=== PATIENT | female | born 1960 | race African-American/Black ===

== ENCOUNTER 2025-07-17 08:09 | Inpatient (IN) | payer OTHER ==
[~2025-07-17] VITALS: Ht 160 cm; Wt 85.1 kg
[~2025-07-17 08:09] MED LIST: HCTZ PO; LISI-713 PO; METO-462 PO; NIACPOW24 PO; WARF10TA PO; WARF5TAB PO
--- NOTE | 2025-07-17 08:18 | ED.PDOC ---
History of Present Illness HPI Comments 28-year-old female RICHARD with prior medical history of hypertension, high lipids, CAD, depression, AFib, mi, anxiety: Surgical history of a hysterectomy and the chief complaint of chest pain. EMS report that the patient originally woke up this morning with swelling on her fingers, and as the patient was w ashing her hands the patient had severe onset of center chest pressure pain [id number]. Patient took 324 mg of baby aspirin at home and called EMS. Patient has started become diaphoretic and have shortness a breath. When EMS arrived on scene the patient was complaining of chest pain on the pain scale of 3/10. Denies any other symptoms at this time. Denies chills, fever, N/V/D, SOB. No other associated symptoms, modifiers, recent injuries or sick contacts present at this time. Chief Complaint: Chest Pain Time Seen by MD: 08:00 Primary Care Provider: Omi Mo Notes: Nurses Notes, [employer] Person Notes, Medications, Allergies Allergies: Coded Allergies: Iodine (Verified Allergy, Unknown, 11/16/18) Uncoded Allergies: FLORINAL (Allergy, Unknown, 11/16/18) Home Meds Reported Medications [Niacin] (Niacin) No Conflict Check, PO DAILY 11/26/12 [Hctz] No Conflict Check, 50 MG PO DAILY 11/26/12 Metoprolol Tartrate (Lopressor) 100 Mg Tab, 200 MG PO BID 11/26/12 Lisinopril (Zestril) 40 Mg Tab, PO BID 11/26/12 Warfarin Sodium (Coumadin) 5 Mg Tab, PO EOD 11/26/12 Warfarin Sodium (Coumadin) 10 Mg Tab, PO EOD 11/26/12 Information Source: Patient, Emergency Med Personnel Mode of Arrival: EMS Severity: Moderate Timing: Minutes Duration: Since onset, Minutes Prehospital treatment: None Past Medical History PAST MEDICAL HISTORY: AFIB, Anxiety, CAD, Depression, High Lipids, HTN, PR Surgical History: Hysterectomy RECEIVER History: No Pertinent RECEIVER History Family History Family History: Reviewed,noncontributory to illness, Unknown Social History Smoker: Quit Less Than 1 Year, Cigarettes Alcohol: Rarely Drugs: Marijuana Lives In: Home Constitutional: reports: others (Diaphoretic); denies: chills, diaphoresis, fatigue, fever, malaise, sweats, weakness EENTM: denies: blurred vision, double vision, ear bleeding, ear discharge, ear drainage, ear pain, ear ringing, eye pain, eye redness, hearing loss, mouth pain, mouth swelling, nasal discharge, nose bleeding, nose congestion, nose pain, photophobia, tearing, throat pain, throat swelling, voice changes, others Respiratory: reports: shortness of breath; denies: cough, hemoptysis, orthopnea, SOB at rest, SOB with excertion, stridor, wheezing, others Cardiovascular: reports: chest pain; denies: dizzy spells, diaphoresis, Dyspnea on exertion, edema, irregular heart beat, left arm pain, lightheadedness, palpitations, PND, syncope, others Gastrointestinal: denies: abdomen distended, abdominal pain, blood streaked bowels, constipated, diarrhea, dysphagia, difficulty swallowing, hematemesis, melena, nausea, poor appetite, poor fluid intake, rectal bleeding, rectal pain, vomiting, others Genitourinary: denies: abnormal vagina bleeding, burning, dyspareunia, dysuria, flank pain, frequency, hematuria, incontinence, pain, , vagina discharge, urgency, others Neurological: denies: dizziness, fainting, headache, left sided numbness, left sided weakness, numbness, paresthesia, pre-existing deficit, right sided numbness, right sided weakness, seizure, speech problems, tingling, tremors, weakness, others Musculoskeletal: denies: back pain, gout, joint pain, joint swelling, muscle pain, muscle stiffness, neck pain, others Integumetry: denies: bruises, change in color, change in hair/nails, dryness, laceration, lesions, lumps, rash, wounds, others Allergic/Immunocompromised: denies: Difficulty Healing, Frequent Infections, Hives, Itching, others Hematologic/Lymphatic: denies: anemia, blood clots, easy bleeding, easy bruising, swollen glands, others Endocrine: denies: excessive hunger, excessive sweating, excessive thirst, excessive urination, flushing, intolerance to cold, intolerance to heat, unexplained weight gain, unexplained weight loss, others Psychiatric: denies: anxiety, bipolar disorder, depression, hopeless, panic disorder, schizophrenia, sleepless, suicidal, others All Other Systems: Reviewed and Negative Physical Exam General Appearance: Moderate Distress, Normal HEENT: Normal ENT Inspection, Pharynx Normal, TMs Normal Neck: Full Range of Motion, Non-Tender, Normal, Normal Inspection Respiratory: Chest Non-Tender, Lungs Clear, No Accessory Muscle Use, No Respir atory Distress, Normal Breath Sounds Cardiovascular: No Edema, No JVD, No Murmur, No Gallop, Normal Peripheral Pulses, Regular Rate/Rhythm Breast Exam: Deferred Gastrointestinal: No Organomegaly, Non Tender, No Pulsatile Mass, Normal Bowel Sounds, Soft Genitalia: Deferred Pelvic: Deferred Rectal: Deferred Extremities: No calf tenderness, Normal capillary refill, Normal inspection, Normal range of motion, Non-tender, No pedal edema Musculoskeletal : Apperance: Normal Neurologic: Alert, matrix supervisor II-XII nml as Tested, No Motor Deficits, Normal Affect, Normal Mood, No Sensory Deficits Cerebellar Function: NOT DONE Reflexes: NOT DONE Skin: Dry, Normal Color, Warm Peripheral Pulses: 3+ Radial (R), 3+ Radial (L) Lymphatic: No Adenopathy Was a procedure done? Was a procedure done?: No EKG EKG : [place]: Normal Block: RBBB Hypertrophy: None ST: Normal Differential Dx Considerations may include: Anemia Electrolyte imbalance X-Ray, Labs, Meds, VS Vital Signs Date Time Temp Pulse Resp B/P (MAP) Pulse Ox O2 Delivery O2 Flow Rate FiO2 07/17/25 09:05 75 13 123/70 (87) 97 07/17/25 08:39 77 07/17/25 08:11 75 07/17/25 08:11 97.6 76 18 118/77 98 97.6 Lab Test 07/17/25 09:58 07/17/25 08:32 Range/Units Troponin I High Sensitivity 5 5 </=34 ng/L White Blood Count 10.5 4.4-10.8 10^3/uL Red Blood Count 4.22 4.0-5.20 10^6/uL Hemoglobin 13.2 12.2-16.2 g/dL Hematocrit 37.8 36.0-46.0 % Mean Corpuscular Volume 89.5 80.0-100.0 fL Mean Corpuscular Hemoglobin 31.2 28.0-32.0 pg Mean Corpuscular Hemoglobin Concent 34.9 32.0-36.0 g/dL Red Cell Distribution Width 13.8 11.8-14.3 % Platelet Count 244 140-450 10^3/uL Mean Platelet Volume 8.8 6.9-10.8 fL Neutrophils (%) (Auto) 70.7 37.0-80.0 % Lymphocytes (%) (Auto) 15.6 10.0-50.0 % Monocytes (%) (Auto) 11.2 0.0-12.0 % Eosinophils (%) (Auto) 1.4 0.0-7.0 % Basophils (%) (Auto) 1.1 0.0-2.0 % Neutrophils # (Auto) 7.4 1.6-8.6 10 ^3/uL Lymphocytes # (Auto) 1.6 0.4-5.4 10 ^3/uL Monocytes # (Auto) 1.2 0-1.3 10 ^3/uL Eosinophils # (Auto) 0.1 0-0.8 10 ^3/uL Basophils # (Auto) 0.1 0-0.2 10 ^3/uL Nucleated Red Blood Cells 0.0 % Sodium Level 144 136-145 mmol/L Potassium Level 2.5 *L 3.5-5.1 mmol/L Chloride Level 107 98-107 mmol/L Carbon Dioxide Level 27 20-31 mmol/L Anion Gap 10 5-15 Blood Urea Nitrogen 19 9-23 mg/dL Creatinine 1.40 H 0.550-1.02 mg/dL Glomerular Filtration Rate Calc 43 >90 mL/min BUN/Creatinine Ratio 13.6 10.0-20.0 Serum Glucose 116 H 74-106 mg/dL Calcium Level 9.0 8.7-10.4 mg/dL Current Medications Medications (Trade) Dose Ordered Sig/Jyotsna Route Start Time Stop Time Status Last Admin Aspirin 325 mg ONCE ONCE PO 07/17/25 08:30 07/17/25 08:31 DC 07/17/25 08:45 Potassium Bicarbonate (Klor-Con/Ef) 50 meq ONCE ONCE PO 07/17/25 10:00 07/17/25 10:01 DC 07/17/25 10:31 Patient alert. Complaining of chest discomfort. Vitals stable. Answering questions. Has a history of atrial fibrillation hypertension. EKG reviewed does show chronic changes. Potassium is low. Was given potassium. Explained to the patient. Continue monitoring. Time of 1ST Reevaluation: 08:30 Reevaluation 1ST: Unchanged Patient Education/Counseling: Diagnosis, Treatment, Prognosis Family Education/Counseling: No Family Present SEPSIS Sepsis Screen Physician Orders Chest Portable (07/17/25 08:16) Urinalysis (07/17/25 08:16) Troponin-I Hs (07/17/25 11:16) Electrocardigram (07/17/25 09:17) Electrocardigram (07/17/25 11:17) Vital Signs Date Time Temp Pulse Resp B/P (MAP) Pulse Ox O2 Delivery O2 Flow Rate FiO2 07/17/25 09:05 75 13 123/70 (87) 97 07/17/25 08:39 77 07/17/25 08:11 75 07/17/25 08:11 97.6 76 18 118/77 98 97.6 Laboratory Tests Test 07/17/25 08:32 White Blood Count 10.5 10^3/uL (4.4-10.8) Medications Medications Dose Ordered Sig/Jyotsna Route Start Time Stop Time Status Last Admin Dose Admin Aspirin 325 mg ONCE ONCE PO 07/17/25 08:30 07/17/25 08:31 DC 07/17/25 08:45 Potassium Bicarbonate 50 meq ONCE ONCE PO 07/17/25 10:00 07/17/25 10:01 DC 07/17/25 10:31 Departure 1 Departure Time of Disposition: 08:24 Impression: Primary Impression: Hypokalemia Additional Impression: Chest pain of unknown etiology Disposition: ADMITTED INPATIENT Admit to: Med Surg Condition: Guarded Critical Care Note Critical Care Time?: Yes (90 min-critical care time only) Stability Stability form required: No Heart Score Heart Score: Heart Score Response (Comments) Value History Slightly Suspicious 0 EKG Normal 0 Age 45-64 1 Risk Factors >3 or Hx ASHD 2 Troponin N/A 0 Total 3 I personally scribed for ESPERANZA JANE MD ([email or web address]) on 07/17/25 at 08:18. Electronically submitted by David Almanzar ([email or web address]). ESPERANZA JANE MD Jul 17, 2025 08:18
[2025-07-17 08:44] LABS: Hematocrit 37.8 % (36.0-46.0); Hemoglobin 13.2 g/dL (12.2-16.2); Mean Corpuscular Hemoglobin 31.2 pg (28.0-32.0); Mean Corpuscular Volume 89.5 fL (80.0-100.0); Nucleated Red Blood Cells % 0.0 %
--- NOTE | 2025-07-17 08:54 | DVH ---
Procedure: XY CHEST PORTABLE History: sob Comparison: CXR1 on DOS: 01/21/22 Technique: Single view of the chest. Findings: The lung parenchyma is clear. No pleural effusion. Cardiac silhouette is enlarged. Impression: 1. No acute cardiopulmonary disease.
[2025-07-17 08:56] LABS: Sodium 144 mmol/L (136-145)
[2025-07-17 08:57] LABS: Anion Gap 10 (5-15); Calcium 9.0 mg/dL (8.7-10.4); Carbon Dioxide 27 mmol/L (20-31)
[2025-07-17 09:02] LABS: BUN/Creatinine Ratio 13.6 (10.0-20.0); Blood Urea Nitrogen 19 mg/dL (9-23); Chloride 107 mmol/L (98-107); Glucose 116 mg/dL (74-106)
[2025-07-17 09:05] VITALS: PULSE 75; RESP 13; O2SAT 97
[2025-07-17 09:05] LABS: Potassium 2.5 mmol/L (3.5-5.1)
[2025-07-17] MEDS: POTASSIUM EFFERVESENT TAB 25 MEQ PO ONE (10:31)
--- NOTE | 2025-07-17 10:44 | ECG ---
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
[2025-07-17] MEDS ORDERED: MORPHINE SULFATE 4 MG/ML SYR/VIAL IV PRN (12:00)
[2025-07-17] MEDS ORDERED: MORPHINE SULFATE INJ 2 MG/ml SYRG IV PRN (12:00)
[2025-07-17] MEDS ORDERED: NITROGLYCERIN 0.4 MG SL TAB SL PRN ×2 (12:00)
[2025-07-17] MEDS ORDERED: ACETAMINOPHEN 325 MG TAB PO PRN (12:00)
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
--- NOTE | 2025-07-17 12:15 | ECG ---
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
--- NOTE | 2025-07-17 12:15 | ECG ---
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
[2025-07-17] MEDS: ONDANSETRON HCL 4 MG/2 ML VIAL IV PRN (12:35)
[2025-07-17] MEDS: ENOXAPARIN SOD 40 MG/0.4 ML SYRINGE SC SCH (14:53)
[2025-07-17] MEDS ORDERED: FLEC100T PO (18:52)
[2025-07-17] MEDS ORDERED: PANT40TA2 PO (18:52)
[2025-07-17] MEDS ORDERED: METO-159 PO (18:52)
[2025-07-17 20:35] VITALS: BP 126/80; PULSE 80; RESP 17; TEMP 98.7; O2SAT 98
[2025-07-17 21:00] VITALS: BP 126/80; PULSE 80; RESP 17; TEMP 98.7; O2SAT 98
[2025-07-17] MEDS: ATORVASTATIN 20 MG TAB PO SCH (22:43)
[2025-07-17] MEDS: METOPROLOL TARTRATE 50 MG TAB PO SCH (22:44)
[2025-07-17] MEDS: HYDROcodone-ACET 7.5/325MG TAB PO ONE (22:45)
[2025-07-17] MEDS ORDERED: INFLUENZA TRIVALENT 2024-2025 0.5 ML INJ IM ONE (23:15)
[2025-07-18] VITALS (9 sets, daily range): BP systolic 89–146; BP diastolic 50–90; PULSE 66–85; RESP 16–19; TEMP 97.8–99; O2SAT 97–99
[2025-07-18 06:46] LABS: Hematocrit 35.0 % (36.0-46.0); Hemoglobin 12.5 g/dL (12.2-16.2); Mean Corpuscular Hemoglobin 31.9 pg (28.0-32.0); Mean Corpuscular Volume 89.7 fL (80.0-100.0); Nucleated Red Blood Cells % 0.0 %
[2025-07-18 06:59] LABS: Anion Gap 12 (5-15); Carbon Dioxide 27 mmol/L (20-31); Chloride 104 mmol/L (98-107); Sodium 143 mmol/L (136-145)
[2025-07-18 07:04] LABS: Calcium 8.7 mg/dL (8.7-10.4); Potassium 2.6 mmol/L (3.5-5.1)
[2025-07-18 07:05] LABS: BUN/Creatinine Ratio 16.1 (10.0-20.0); Blood Urea Nitrogen 20 mg/dL (9-23); Magnesium 1.8 mg/dL (1.6-2.6); Triglycerides 143 mg/dL (< 150)
[2025-07-18 07:07] LABS: Cholesterol 180 mg/dL (< 200)
[2025-07-18 07:10] LABS: Glucose 147 mg/dL (74-106); HDL Cholesterol 34 mg/dL (40-59)
[2025-07-18] MEDS ORDERED: HCTZ PO SCH (10:00)
[2025-07-18] MEDS ORDERED: LISINOPRIL 20 MG TAB PO SCH (10:00)
--- NOTE | 2025-07-18 11:19 | DVHSR ---
APPROVED REPORT EXAM: Two-dimensional and M-mode echocardiogram with Doppler and color Doppler. Blood Pressure: 123/70 mmHg INDICATION Chest Pain RISK FACTORS Height: 63, Weight: 175 DIMENSIONS LVDd4.4 (3.8-5.7cm)LA (2D) (1.9-4.0cm)Aortic Root3.4 (2.0-3.7cm) LVDs2.8 (2.5-4.0cm)LA (MM) (1.9-4.0cm)Aortic Cusp Exc2.1 (1.5-2.0cm) EF (%) 67.0 (55-70%)Rt. Atrium4.6 (1.9-4.0cm)Asc. Aorta cm Mitral Valve MitralMitral Stenosis E wave0.93m/sMV Mean GR.mmHg A wave1.36m/sMV Peak GR.92mmHg E/A ratio0.72D MVAcm2 DECEL [id number] 1/2 [id number] IVRTmsDop MVA3.42cm2 Aortic Valve Aortic ValveAortic Stenosis V11.35m/Christiane Mean GR.5mmHg V21.61m/Christiane Peak GR.10mmHg LVOT Diameter2.2 (1.8-2.4cm)Doppler AVA3.19cm2 AI P 1/2 Mjgs620.23ms Pulmonic Valve V20.95m/s Tricuspid Valve TR Velocity2.69m/s [id number] Conclusion Technically good study. Sinus rhythm. Mild aortic root enlargement. Mild thickening of the anterior and posterior mitral leaflets. Good excursion. The aortic tricuspid and pulmonic or structurally normal. Left ventricular function is preserved at 60% with normal RV function. Dopplers unremarkable. Mild MR. Moderate tricuspid regurgitation. Trace aortic insufficiency. No pericardial effusion masses or vegetations.
--- NOTE | 2025-07-18 14:34 | DVHPN2 ---
Reviewed: Care Plan, H&P, Labs, Medications, Previous Orders, Radiology Changes from previous H/P or p: No Changes Cardiovascular: Chest Pain Respiratory: Shortness of breath Objective Vitals Vital Signs Date Time Temp Pulse Resp B/P (MAP) Pulse Ox O2 Delivery O2 Flow Rate FiO2 07/18/25 13:00 98.5 66 18 89/50 (63) 98 98.5 07/17/25 20:35 Room Air* 0 21 Intake/Output Intake and Output 07/18/25 07:00 Intake Total 300 ml Balance 300 ml Intake Oral 300 ml # Voids 1 Medications Current Medications Medications Dose Ordered Sig/Jyotsna Route Start Time Stop Time Status Last Admin Dose Admin Enoxaparin Sodium 40 mg DAILY SC 07/17/25 12:00 07/18/25 09:53 40 MG Aspirin 81 mg DAILY PO 07/18/25 10:00 07/18/25 09:53 81 MG Atorvastatin Calcium 40 mg HS PO 07/17/25 22:00 07/17/25 22:43 40 MG Acetaminophen 650 mg Q6HP PRN PO 07/17/25 12:00 Nitroglycerin 0.4 mg Q5MINP PRN SL 07/17/25 12:00 Ondansetron HCl 4 mg Q4HP PRN IV 07/17/25 12:00 07/18/25 08:29 4 MG Morphine Sulfate 2 mg Q30M PRN IV 07/17/25 12:00 Metoprolol Tartrate 100 mg BID PO 07/17/25 22:00 07/17/25 22:44 100 MG Patient Own Medication 50 mg DAILY PO 07/18/25 10:00 Hold Lisinopril 40 mg DAILY PO 07/18/25 10:00 Hold Laboratory Results Laboratory Tests 07/18/25 05:37 Chemistry Test 07/18/25 05:37 Calcium Level 8.7 mg/dL (8.7-10.4) Magnesium Level 1.8 mg/dL (1.6-2.6) Lipid panel Test 07/18/25 05:37 Cholesterol Level 180 mg/dL (< 200) HDL Cholesterol 34 mg/dL (40-59) L Triglycerides Level 143 mg/dL (< 150) Labs and/or images reviewed: Labs reviewed by me, Image(s) reviewed by me Assessment/Plan Assessment/Plan Chest pain rule out ACS: Troponin negative x3: Echo 60 % ejection fraction, consult by Dr. Olson Hypokalemia AMELIA likely prerenal Tobacco use AFib Anxiety Coronary artery disease Depression Hypercholesterolemia Hypertension History of MT History of cardiac ablation 2018 at [place] Medication noncompliance Time spent 50 minutes losartan Advanced care planning time 20 minutes Patient is full code Plan discussed with: Patient Date of Service: Jul 18, 2025 Billing Provider: YVES PULIDO MD Common Visit Codes: [id number] INP/OBS CARE(HIGH) Secondary Visit Codes: [id number] CARE PLAN 30 MINUTES YVES PULIDO MD Jul 18, 2025 14:34
[2025-07-18] MEDS ORDERED: POTASSIUM CHLORIDE 60 MEQ, LIDOCAINE 1% (LOCAL ANESTH.) 6 ML in SODIUM CHL 0.9% 500 ML IV ONE (14:45)
[2025-07-18] MEDS ORDERED: POTASSIUM CHL 20 Meq TABLET PO ONE (14:45)
--- NOTE | 2025-07-18 15:08 | DVHINCON2 ---
Date Seen: Jul 18, 2025 Referring Physician MD Chuckie Reason for Consultation Chest pain History of Present Illness This is a pleasant 64-year-old female who presented to the emergency room via EMS with a chief complaint of chest pain since . The patient reports developing myalgia, aching of the hips, and right hand swelling on Tuesday. She reports on Tuesday morning she felt a sudden onset of substernal chest pain described as pressure-like, nonradiating, non provoked, and associated with tremors and hyperventilation prompting her spouse to call 911. EN route to the hospital she was administered ASA 324 mg p.o. x1. Upon arrival, she underwent a 12 lead electrocardiogram revealing a sinus rhythm with a associated right bundle branch block and LABF. There were no obvious signs of ST-T segment changes. Serial troponin levels are negative. Significant medical history includes history of atrial fibrillation previously on Pradaxa therapy status post cardiac ablation on 2017 at [facility] and with current ASA/flecainide/metoprolol therapy, history of myocardial infarction undergoing a coronary angiogram without catheter based intervention given normal coronaries in 2003, mitral valve regurgitation, chronic hypokalemia (stopped KCL three years ago), hypertension, asthma, and anxiety. Past Medical History Past medical history reviewed. No other significant than mentioned above. Past Surgical History Cardiac ablation, 2018 Hysterectomy Family History: Patient reports no known family medical history. Family History Family history reviewed. Both parents with CHF. Social History Admits to cigarette smoking, one pack per day. Admits to edibles (cannabinoids) on occasional basis. Denies the use of alcohol. Allergies: Coded Allergies: Iodine (Verified Allergy, Unknown, 11/16/18) Uncoded Allergies: FLORINAL (Allergy, Unknown, 11/16/18) Home Meds Reported Medications Flecainide Acetate (Flecainide Acetate) 100 Mg Tab, 100 MG PO Q12HR, MG 07/17/25 Pantoprazole Sodium Sesquihydr (Protonix) 40 Mg Tab, 40 MG PO DAILY, #30 TAB 07/17/25 Metoprolol Tartrate (Metoprolol Tartrate) 100 Mg Tab, 100 MG PO BID for 30 Days, MG 07/17/25 [Niacin] (Niacin) No Conflict Check, PO DAILY 11/26/12 [Hctz] No Conflict Check, 50 MG PO DAILY 11/26/12 Metoprolol Tartrate (Lopressor) 100 Mg Tab, 200 MG PO BID 11/26/12 Lisinopril (Zestril) 40 Mg Tab, PO BID 11/26/12 Warfarin Sodium (Coumadin) 5 Mg Tab, PO EOD 11/26/12 Warfarin Sodium (Coumadin) 10 Mg Tab, PO EOD 11/26/12 Home Meds Home medications reviewed. Current Medications Current Medications Medications (Trade) Dose Ordered Sig/Jyotsna Route PRN Reason Start Time Stop Time Status Last Admin Aspirin 81 mg DAILY PO 07/18/25 10:00 07/18/25 09:53 Atorvastatin Calcium (Lipitor) 40 mg HS PO 07/17/25 22:00 07/17/25 22:43 Metoprolol Tartrate (Lopressor Tablet) 100 mg BID PO 07/17/25 22:00 07/17/25 22:44 Patient Own Medication 50 mg DAILY PO 07/18/25 10:00 Hold Lisinopril (Zestril Tablet) 40 mg DAILY PO 07/18/25 10:00 Hold Hydromorphone HCl (Dilaudid Injection) 2 mg Q6HPRN PRN IV SEVERE PAIN (7-10 PAIN SCALE) 07/18/25 14:45 Review of Systems Constitutional: Myalgia Ears, Nose, & Throat: No symptom reported Eyes: No symptom reported Neurological: No symptoms reported Pulmonary/Respiratory: No symptom reported Cardiovascular: Chest pain Gastrointestinal: No symptom reported Genitourinary: No symptom reported Musculoskeletal: No symptom reported Skin: No symptom reported Psychiatric: No symptom reported Endocrine: No symptom reported Hemotologic/Lymphatic: No symptom reported Vital Signs Vital Signs Date Time Temp Pulse Resp B/P (MAP) Pulse Ox O2 Delivery O2 Flow Rate FiO2 07/18/25 13:00 98.5 66 18 89/50 (63) 98 98.5 07/17/25 20:35 Room Air* 0 21 Physical Exam General Appearance: Cooperative. Well developed. Obese. In no acute distress Head Exam: Normal inspection Neck Exam: Normal inspection. Non-tender. Normal alignment Pulmonary/Respiratory: Chest non-tender. Clear bilateral breath sounds Cardiovascular/Chest: Regular rate and rhythm. S1, S2. Sinus rhythm with RBBB and LAFB. No murmurs. No JVD. Peripheral Pulses: 2+ Radial (R). 2+ Radial (L). 2+ Pedal (R). 2+ Pedal (L) Abdominal Exam: Normal bowel sounds. Soft. Ankle Exam: Negative ankle edema Lower extremities: Negative lower extremity edema Neuro/Mental Status: A&O x4. Coherent Thoughts/Psych: Normal thought pattern. Appropriate mood and affect. Good judgement and insight Appearance: In no acute distress Skin Exam: Normal inspection. Normal color. Warm. Dry Labs/Diagnostic Data Labs Test 07/18/25 05:37 07/17/25 08:32 Range/Units White Blood Count 9.1 4.4-10.8 10^3/uL Red Blood Count 3.91 L 4.0-5.20 10^6/uL Hemoglobin 12.5 12.2-16.2 g/dL Hematocrit 35.0 L 36.0-46.0 % Mean Corpuscular Volume 89.7 80.0-100.0 fL Mean Corpuscular Hemoglobin 31.9 28.0-32.0 pg Mean Corpuscular Hemoglobin Concent 35.6 32.0-36.0 g/dL Red Cell Distribution Width 13.8 11.8-14.3 % Platelet Count 229 140-450 10^3/uL Mean Platelet Volume 9.5 6.9-10.8 fL Neutrophils (%) (Auto) 57.3 37.0-80.0 % Lymphocytes (%) (Auto) 25.4 10.0-50.0 % Monocytes (%) (Auto) 14.4 H 0.0-12.0 % Eosinophils (%) (Auto) 1.8 0.0-7.0 % Basophils (%) (Auto) 1.1 0.0-2.0 % Neutrophils # (Auto) 5.2 1.6-8.6 10 ^3/uL Lymphocytes # (Auto) 2.3 0.4-5.4 10 ^3/uL Monocytes # (Auto) 1.3 0-1.3 10 ^3/uL Eosinophils # (Auto) 0.2 0-0.8 10 ^3/uL Basophils # (Auto) 0.1 0-0.2 10 ^3/uL Nucleated Red Blood Cells 0.0 % Sodium Level 143 136-145 mmol/L Potassium Level 2.6 L 3.5-5.1 mmol/L Chloride Level 104 98-107 mmol/L Carbon Dioxide Level 27 20-31 mmol/L Anion Gap 12 5-15 Blood Urea Nitrogen 20 9-23 mg/dL Creatinine 1.24 H 0.550-1.02 mg/dL Glomerular Filtration Rate Calc 49 >90 mL/min BUN/Creatinine Ratio 16.1 10.0-20.0 Serum Glucose 147 H 74-106 mg/dL Calcium Level 8.7 8.7-10.4 mg/dL Magnesium Level 1.8 1.6-2.6 mg/dL Troponin I High Sensitivity 8 </=34 ng/L Triglycerides Level 143 < 150 mg/dL Cholesterol Level 180 < 200 mg/dL LDL Cholesterol 123 H < 100 mg/dL HDL Cholesterol 34 L 40-59 mg/dL Hemoglobin A1c 5.2 <5.7 % A1C Thyroid Stimulating Hormone (TSH) 1.13 0.55-4.78 uIU/mL Free Thyroxine (T4) Calculated 1.36 0.89-1.76 ng/dL Assessment Chest pain in the setting of severe hypokalemia Hx of atrial fibrillation status post cardiac ablation (on ASA/BB/Flecainide) Tricuspid regurgitation, moderate degree Dyslipidemia, newly diagnosed Nicotine dependence Obesity Plan/Recommendation (Dr. Olson) A transthoracic echocardiogram revealed a left ventricular function preserved at 60% with normal RV function and moderate tricuspid regurgitation. Scheduled for a cardiolite stress test at first available. In the meantime, discontinue blood pressure medications given hypotension, continue single antiplatelet therapy, continue lipid lowering agent, and replete K and Mg levels as ordered. ECG changes closely and notify. Further orders per clinical course. Thank you for allowing us to participate in this patient's care. Please call if you have any questions or concerns. This medical document was created using an electronic medical record system with voice recognition software and computerized dictation system. Although this document has been carefully reviewed, there might still be some phonetic and typographical errors. Occasional wrong-word or ``sound-alike substitutions ma y have occurred due to the inherent limitations of voice recognition software. These areas are purely typographical due to imperfections of the software programs and do not reflect any compromise in the patient's medical care. Please read the chart carefully and recognize, using context, where these substitutions have occurred. Plan discussed with: Patient, Spouse, Other NYHA Physical activity limitations: NA Date of Service: Jul 18, 2025 Billing Provider: ASHUTOSH APODACA Cardiology Common Codes: [id number] INP/OBS CARE (High) ASHUTOSH APODACA Jul 18, 2025 15:07
[2025-07-18] MEDS: MAGNESIUM SULFATE 1GM/100ML 100 ML IV ONE (16:09)
[2025-07-18] MEDS: HYDROmorphone HCL 2 MG/ML VL/or syr IV PRN (16:34)
[2025-07-18] MEDS: POTASSIUM EFFERVESENT TAB 25 MEQ GT ONE (16:34)
[2025-07-18] MEDS: POTASSIUM EFFERVESENT TAB 25 MEQ PO SCH (21:35)
[2025-07-19] VITALS (7 sets, daily range): BP systolic 94–149; BP diastolic 57–90; PULSE 79–106; RESP 18–21; TEMP 97.9–99.1; O2SAT 95–97
[2025-07-19 06:37] LABS: Hematocrit 35.0 % (36.0-46.0); Hemoglobin 12.2 g/dL (12.2-16.2); Mean Corpuscular Hemoglobin 31.4 pg (28.0-32.0); Mean Corpuscular Volume 90.4 fL (80.0-100.0); Nucleated Red Blood Cells % 0.0 %
[2025-07-19 07:05] LABS: Albumin 4.0 g/dL (3.2-4.8); Alkaline Phosphatase 84 U/L (46-116); Anion Gap 10 (5-15); BUN/Creatinine Ratio 11.9 (10.0-20.0); Bilirubin, Total 0.5 mg/dL (0.2-1.0); Blood Urea Nitrogen 12 mg/dL (9-23); Calcium 9.2 mg/dL (8.7-10.4); Carbon Dioxide 31 mmol/L (20-31); Chloride 103 mmol/L (98-107); Glucose 87 mg/dL (74-106); Sodium 144 mmol/L (136-145); Total Protein 7.3 g/dL (5.7-8.2)
[2025-07-19 07:23] LABS: Alanine Aminotransferase < 9 U/L (7-40); Potassium 2.8 mmol/L (3.5-5.1)
[2025-07-19] MEDS: REGADENOSON 0.4 MG/5 ML SYRG IV ONE ×2 (10:38→11:09)
--- NOTE | 2025-07-19 10:55 | DVHPN2 ---
Reviewed: Care Plan, H&P, Labs, Medications, Previous Orders, Radiology Changes from previous H/P or p: No Changes Cardiovascular: Chest Pain Respiratory: Shortness of breath Objective Vitals Vital Signs Date Time Temp Pulse Resp B/P (MAP) Pulse Ox O2 Delivery O2 Flow Rate FiO2 07/19/25 08:45 99.1 79 18 94/57 (69) 96 99.1 07/19/25 08:00 Room Air* 0 21 Intake/Output Intake and Output 07/19/25 07:00 Intake Total 2550 ml Output Total 225 ml Balance 2325 ml Intake Oral 2450 ml IV Total 100 ml Output Emesis 225 ml # Voids 5 Medications Current Medications Medications Dose Ordered Sig/Jyotsna Route Start Time Stop Time Status Last Admin Dose Admin Enoxaparin Sodium 40 mg DAILY SC 07/17/25 12:00 07/18/25 09:53 40 MG Aspirin 81 mg DAILY PO 07/18/25 10:00 07/18/25 09:53 81 MG Atorvastatin Calcium 40 mg HS PO 07/17/25 22:00 07/18/25 21:35 40 MG Acetaminophen 650 mg Q6HP PRN PO 07/17/25 12:00 Nitroglycerin 0.4 mg Q5MINP PRN SL 07/17/25 12:00 Ondansetron HCl 4 mg Q4HP PRN IV 07/17/25 12:00 07/19/25 05:36 4 MG Morphine Sulfate 2 mg Q30M PRN IV 07/17/25 12:00 Hydromorphone HCl 2 mg Q6HPRN PRN IV 07/18/25 14:45 07/19/25 05:36 2 MG Potassium Bicarbonate 50 meq BID PO 07/18/25 22:00 07/18/25 21:35 50 MEQ Laboratory Results Laboratory Tests 07/19/25 05:23 Chemistry Test 07/19/25 05:23 Albumin 4.0 g/dL (3.2-4.8) Calcium Level 9.2 mg/dL (8.7-10.4) Total Protein 7.3 g/dL (5.7-8.2) LFT Test 07/19/25 05:23 Alanine Aminotransferase (ALT) < 9 U/L (7-40) Alkaline Phosphatase 84 U/L (46-116) Aspartate Amino Transferase (AST) 18 U/L (13-40) Total Bilirubin 0.5 mg/dL (0.2-1.0) Labs and/or images reviewed: Labs reviewed by me, Image(s) reviewed by me Assessment/Plan Assessment/Plan Chest pain rule out ACS: Troponin negative x3: Echo 60 % ejection fraction, consult by Dr. Olson appreciated, patient getting Cardiolite stress test Hypokalemia AMELIA likely prerenal Tobacco use AFib status post cardiac ablation, aspirin beta narayan flecainide Anxiety Coronary artery disease Depression Hypercholesterolemia new diagnosis Hypertension History of [place] History of cardiac ablation 2018 at [place] Chronic current smoker: Counseling Medication noncompliance Time spent 50 minutes losartan Advanced care planning time 20 minutes Patient is full code Plan discussed with: Patient My Orders Orders - YVES PULIDO MD Procedure Category Date Status Time * Cardiology Consult CONS 07/18/25 Transmitted 14:24 Hydromorphone PHA 07/18/25 In Process Injection (Dilaudid 14:45 Date of Service: Jul 19, 2025 Billing Provider: YVES PULIDO MD Common Visit Codes: [id number] INP/OBS CARE(HIGH) YVES PULIDO MD Jul 19, 2025 10:55
--- NOTE | 2025-07-19 14:53 | DVHPN2 ---
Consult Progress Note Date Seen: Jul 19, 2025 Subjective Review of Systems: CVS:Normal, RESPIRATORY:Normal, GI:Abnormal, NEURO:Normal Other Systems: C/o nausea Objective vital signs Vital Sign Date Time Temp Pulse Resp B/P (MAP) Pulse Ox O2 Delivery O2 Flow Rate FiO2 07/19/25 14:34 98 17 149/82 07/19/25 08:45 99.1 96 99.1 07/19/25 08:00 Room Air* 0 21 Total Intake and Output 07/18/25 07/18/25 07/19/25 15:00 23:00 07:00 Intake Total 550 ml 1100 ml 900 ml Output Total 225 ml Balance 550 ml 875 ml 900 ml medications Current Medications Medications Dose Ordered Sig/Jyotsna Route Start Time Stop Time Status Last Admin Dose Admin Enoxaparin Sodium 40 mg DAILY SC 07/17/25 12:00 07/18/25 09:53 40 MG Aspirin 81 mg DAILY PO 07/18/25 10:00 07/18/25 09:53 81 MG Atorvastatin Calcium 40 mg HS PO 07/17/25 22:00 07/18/25 21:35 40 MG Acetaminophen 650 mg Q6HP PRN PO 07/17/25 12:00 Nitroglycerin 0.4 mg Q5MINP PRN SL 07/17/25 12:00 Ondansetron HCl 4 mg Q4HP PRN IV 07/17/25 12:00 07/19/25 14:26 4 MG Morphine Sulfate 2 mg Q30M PRN IV 07/17/25 12:00 Hydromorphone HCl 2 mg Q6HPRN PRN IV 07/18/25 14:45 07/19/25 14:34 2 MG Potassium Bicarbonate 50 meq BID PO 07/18/25 22:00 07/19/25 14:17 50 MEQ Examination: LUNGS:Normal, CVS:Normal, NEURO:Normal laboratory and microbiology Laboratory Tests 07/19/25 05:23 Test 07/19/25 05:23 Range/Units Serum Glucose 87 74-106 mg/dL Problem List/Assessment/Plan Problem List/Assessment/Plan Chest pain in the setting of severe hypokalemia Hx of atrial fibrillation status post cardiac ablation (on ASA/BB/Flecainide) Tricuspid regurgitation, moderate degree Dyslipidemia, newly diagnosed Nicotine dependence Obesity Plan/Recommendation (Dr. Olson) A transthoracic echocardiogram revealed a left ventricular function preserved at 60% with normal RV function and moderate tricuspid regurgitation. She underwent a non-ischemic cardiolite stress as reviewed by Dr. Olson. In the meantime, initiate spironolactone, continue single-antiplatelet therapy, continue lipid lowering agent, and replete K and Mg levels as necessary. There is no further cardiac work-up indicated at this time. Kindly call with any questions or concerns. Thank you for allowing us to participate in this patient's care. This medical document was created using an electronic medical record system with voice recognition software and computerized dictation system. Although this document has been carefully reviewed, there might still be some phonetic and typographical errors. Occasional wrong-word or ``sound-alike substitutions may have occurred due to the inherent limitations of voice recognition software. These areas are purely typographical due to imperfections of the software programs and do not reflect any compromise in the patient's medical care. Please read the chart carefully and recognize, using context, where these substitutions have occurred. Plan discussed with: Patient, Spouse, Other Dietary Evaluation Review Comments: Monitor PO intake, lab values, weight trend, and I/O Expected Outcomes/Goals: Lab values to improve Fu 3-5 days Date of Service: Jul 19, 2025 Billing Provider: ASHUTOSH APODACA Cardiology Common Codes: [id number] [facility] CARE([facility] ASHUTOSH APODACA Jul 19, 2025 14:53
[2025-07-19] MEDS: SPIRONOLACTONE 25 MG TAB PO ONE (15:34)
[2025-07-19] MEDS: SPIRONOLACTONE 25 MG TAB PO SCH (17:42)
[2025-07-20] VITALS (7 sets, daily range): BP systolic 111–132; BP diastolic 69–90; PULSE 69–102; RESP 18–21; TEMP 97.6–98; O2SAT 94–96
--- NOTE | 2025-07-20 12:32 | DVHPN2 ---
Reviewed: Care Plan, H&P, Labs, Medications, Previous Orders, Radiology Changes from previous H/P or p: No Changes Cardiovascular: Chest Pain Respiratory: Shortness of breath Objective Vitals Vital Signs Date Time Temp Pulse Resp B/P (MAP) Pulse Ox O2 Delivery O2 Flow Rate FiO2 07/20/25 09:00 98.0 87 18 112/76 (88) 96 98.0 07/20/25 08:00 Room Air* 0 21 Intake/Output Intake and Output 07/20/25 07:00 Intake Total 1620 ml Output Total 400 ml Balance 1220 ml Intake Oral 1620 ml Output Emesis 400 ml # Voids 6 Medications Current Medications Medications Dose Ordered Sig/Jyotsna Route Start Time Stop Time Status Last Admin Dose Admin Enoxaparin Sodium 40 mg DAILY SC 07/17/25 12:00 07/20/25 10:33 40 MG Aspirin 81 mg DAILY PO 07/18/25 10:00 07/20/25 10:32 81 MG Atorvastatin Calcium 40 mg HS PO 07/17/25 22:00 07/19/25 21:32 40 MG Acetaminophen 650 mg Q6HP PRN PO 07/17/25 12:00 Nitroglycerin 0.4 mg Q5MINP PRN SL 07/17/25 12:00 Ondansetron HCl 4 mg Q4HP PRN IV 07/17/25 12:00 07/19/25 21:32 4 MG Morphine Sulfate 2 mg Q30M PRN IV 07/17/25 12:00 Hydromorphone HCl 2 mg Q6HPRN PRN IV 07/18/25 14:45 07/20/25 05:51 2 MG Potassium Bicarbonate 50 meq BID PO 07/18/25 22:00 07/19/25 21:32 50 MEQ Spironolactone 25 mg BIDD PO 07/19/25 18:00 07/20/25 05:34 25 MG Laboratory Results Laboratory Tests 07/19/25 05:23 Labs and/or images reviewed: Labs reviewed by me, Image(s) reviewed by me Assessment/Plan Assessment/Plan Chest pain coronary artery disease ruled out Troponin negative x3: Echo 60 % ejection fraction, consult by Dr. Olson appreciated, Cardiolite stress test negative Hypokalemia resolved AMELIA likely prerenal Tobacco use AFib status post cardiac ablation, aspirin beta narayan flecainide Anxiety Coronary artery disease Depression Hypercholesterolemia new diagnosis Hypertension History of [place] History of cardiac ablation 2018 at [place] Chronic current smoker: Counseling Medication noncompliance Time spent 50 minutes losartan Advanced care planning time 20 minutes Patient is full code Plan discussed with: Patient Date of Service: Jul 20, 2025 Billing Provider: YVES PULIDO MD Common Visit Codes: [id number] INP/OBS CARE(HIGH) YVES PULIDO MD Jul 20, 2025 12:32
--- NOTE | 2025-07-20 12:35 | DVHDS2 ---
Discharge Summary Date of Admission Jul 17, 2025 at 11:59 Date of Discharge: Jul 20, 2025 Admitting Diagnosis Chest pain Wounds: None Labs/Diagnostic Data: Laboratory Results Test 07/19/25 05:23 07/18/25 05:37 07/17/25 08:32 White Blood Count 8.4 10^3/uL (4.4-10.8) Red Blood Count 3.87 10^6/uL (4.0-5.20) Hemoglobin 12.2 g/dL (12.2-16.2) Hematocrit 35.0 % (36.0-46.0) Mean Corpuscular Volume 90.4 fL (80.0-100.0) Mean Corpuscular Hemoglobin 31.4 pg (28.0-32.0) Mean Corpuscular Hemoglobin Concent 34.7 g/dL (32.0-36.0) Red Cell Distribution Width 13.8 % (11.8-14.3) Platelet Count 232 10^3/uL (140-450) Mean Platelet Volume 9.0 fL (6.9-10.8) Neutrophils (%) (Auto) 54.9 % (37.0-80.0) Lymphocytes (%) (Auto) 29.7 % (10.0-50.0) Monocytes (%) (Auto) 12.8 % (0.0-12.0) Eosinophils (%) (Auto) 1.6 % (0.0-7.0) Basophils (%) (Auto) 1.0 % (0.0-2.0) Neutrophils # (Auto) 4.6 10 ^3/uL (1.6-8.6) Lymphocytes # (Auto) 2.5 10 ^3/uL (0.4-5.4) Monocytes # (Auto) 1.1 10 ^3/uL (0-1.3) Eosinophils # (Auto) 0.1 10 ^3/uL (0-0.8) Basophils # (Auto) 0.1 10 ^3/uL (0-0.2) Nucleated Red Blood Cells 0.0 % Sodium Level 144 mmol/L (136-145) Potassium Level 2.8 mmol/L (3.5-5.1) Chloride Level 103 mmol/L (98-107) Carbon Dioxide Level 31 mmol/L (20-31) Anion Gap 10 (5-15) Blood Urea Nitrogen 12 mg/dL (9-23) Creatinine 1.01 mg/dL (0.550-1.02) Glomerular Filtration Rate Calc 63 mL/min (>90) BUN/Creatinine Ratio 11.9 (10.0-20.0) Serum Glucose 87 mg/dL (74-106) Calcium Level 9.2 mg/dL (8.7-10.4) Total Bilirubin 0.5 mg/dL (0.2-1.0) Aspartate Amino Transferase (AST) 18 U/L (13-40) Alanine Aminotransferase (ALT) < 9 U/L (7-40) Alkaline Phosphatase 84 U/L (46-116) Total Protein 7.3 g/dL (5.7-8.2) Albumin 4.0 g/dL (3.2-4.8) Magnesium Level 1.8 mg/dL (1.6-2.6) Troponin I High Sensitivity 8 ng/L (</=34) Triglycerides Level 143 mg/dL (< 150) Cholesterol Level 180 mg/dL (< 200) LDL Cholesterol 123 mg/dL (< 100) HDL Cholesterol 34 mg/dL (40-59) Hemoglobin A1c 5.2 % A1C (<5.7) Thyroid Stimulating Hormone (TSH) 1.13 uIU/mL (0.55-4.78) Free Thyroxine (T4) Calculated 1.36 ng/dL (0.89-1.76) Other Laboratory Tests 07/19/25 05:23 Brief Hx & Hospital Course: 64-year-old female with a history of anxiety coronary artery disease depression hypercholesterolemia hypertension [place] cardiac ablation 2018 at [place] came in for chest pain. Potassium was low which was replaced troponin was negative x3 echo 60 percent ejection fraction seen by cardiology Dr. Holt Cardiolite stress test negative patient is asymptomatic and being discharged home. Cleared by Cardiology for discharge she will continue all her home medications follow up with the primary Dr. Consults/Reason for consult Cardiology Operations or Procedures Echocardiogram Condition at Discharge: Fair Final Diagnosis/Problems List Chest pain coronary artery disease ruled out Troponin negative x3: Echo 60 % ejection fraction, consult by Dr. Wesley aguilar, Cardiolite stress test negative Hypokalemia resolved AMELIA likely prerenal Tobacco use AFib status post cardiac ablation, aspirin beta narayan flecainide Anxiety Coronary artery disease Depression Hypercholesterolemia new diagnosis Hypertension History of [place] History of cardiac ablation 2017 at [place] Chronic current smoker: Counseling Discharge Disposition: Home Discharge Instruct/Medications Diet: Cardiac 2g Na,low cholest Activity: Light activity Follow Up/Referral: Follow up with the primary Dr Kim all previous home meds Medications: none Scheduled Flecainide Acetate (Flecainide Acetate), 100 MG PO Q12HR, (Reported) Lisinopril (Zestril), PO BID, (Reported) Metoprolol Tartrate (Lopressor), 200 MG PO BID, (Reported) Metoprolol Tartrate (Metoprolol Tartrate), 100 MG PO BID, (Reported) Pantoprazole Sodium Sesquihydr (Protonix), 40 MG PO DAILY, (Reported) Warfarin Sodium (Coumadin), PO EOD, (Reported) Warfarin Sodium (Coumadin), PO EOD, (Reported) [Hctz], 50 MG PO DAILY, (Reported) [Niacin], PO DAILY, (Reported) 39 (Time Taken for discharge summary 39 minutes) Discharge Statement: "Patient was advised to return to the ER or call 911 if any headaches, dizziness, shortness of breath, chest pain, abdominal pain, bleeding, fevers, or worsening of medical condition. Patient was counseled about treatment plan, medications, possible side effects, patientverbalized understanding. All questions were answered to the best of my ability. This discharge took greater then 30 minutes in planning, reviewing documentation, counseling the patient, and discussing with other team members." ASSESSMENT ASSESSMENT Hospital Course Uneventful Assessment Chest pain coronary artery disease ruled out Troponin negative x3: Echo 60 % ejection fraction, consult by Dr. Wesley aguilar, Cardiolite stress test negative Hypokalemia resolved AMELIA likely prerenal Tobacco use AFib status post cardiac ablation, aspirin beta narayan flecainide Anxiety Coronary artery disease Depression Hypercholesterolemia new diagnosis Hypertension History of [place] History of cardiac ablation 2018 at [place] Chronic current smoker: Counseling Date of Service: Jul 20, 2025 Billing Provider: YVES PULIDO MD Common Visit Codes: [id number] DISCH DAY >30min YVES PULIDO MD Jul 20, 2025 12:35
--- NOTE | 2025-07-22 09:57 | DVHSR ---
APPROVED REPORT Exam: Nuclear Stress Test BMI: 0 Stress Test Details Stress Test: Pharmacologic stress testing performed using 0.4 mg of regadenoson per 5 mL given IV ov er 10 seconds. HR Resting HR: 92 bpmMax Heart Rate (APMHR): 158.487225 bpm Max HR Achieved: 141 bpmTarget HR (85% APMHR): 134.687331 bpm % of APMHR: 89.24 Recovery HR: 101 bpm BP Resting BP: 142/91 mmHg Recovery BP: 144/89 mmHg ECG Resting ECG: Sinus Rhythm Clinical Reason for Termination: Completed protocol Nurse Comments Recieved pt. from [facility]. A/Ox4 on RA. 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 PIV flushes well. Re viewed POC. Pt. verbalized understanding of procedure including risks and side effects, agrees for st ress testing. Lexiscan stress test performed per protocol. [facility] tech administered Cardiolite. Pt. tolerated well . Pt. stable, no change on exam. VS returned to baseline. Transferred to [facility] via wheelchair w/ te ch. Stress ECG Conclusion lvef 70% ecg shows SR RBBB normal perfusion scan no severe ischemia noted GI artifact noted NM EXAM: Myocardial Perfusion REST/STRESS Imaging Protocol: Rest Tc-99m/Stress Tc-99m 2 days Resting Data Rest SPECT myocardial perfusion imaging was performed in supine position 30 minutes following the int ravenous injection of 15.5 mCi of Tc-99m Sestamibi. Time of rest injection: 1330 Time of rest imagin Administration Route: IV Administration Site: Left AC Pharmacologic Stress Pharmacologic stress test was performed by injecting Regadenoson 0.4 mg IV push followed by the intra venous injection of 20.5 mCi of Tc-99m Sestamibi. Time of stress injection: 1110 Time of stress imagin Administration Route: IV Administration Site: Left AC Gated Stress SPECT was performed 50 minutes after stress injection. The images were gated to evaluate regional wall motion and calculate left ventricular ejection fracti on. Nuclear Conclusion Nuclear Findings: negative for ischemia lvef 70% ecg shows SR RBBB normal perfusion scan no severe ischemia noted GI artifact noted
== END 2025-07-20 15:53 | disposition home or self-care (01) | DRG 313 ==
LOC: EDUNIT# 08:09 → EDBD 08:09 → ER 08:11 → OVERFLOW 11:59 → TELE-EAST 20:10
PROVIDERS: ADMIT Family Medicine; ATTEND Family Medicine
DX: R07.89 Other chest pain (principal); N17.9 Acute kidney failure, unspecified; E87.6 Hypokalemia; F32.A Depression, unspecified; F41.9 Anxiety disorder, unspecified; E78.00 Pure hypercholesterolemia, unspecified; I48.91 Unspecified atrial fibrillation; I10 Essential (primary) hypertension; I45.10 Unspecified right bundle-branch block; F17.210 Nicotine dependence, cigarettes, uncomplicated; E66.9 Obesity, unspecified; I08.1 Rheumatic disorders of both mitral and tricuspid valves; J45.909 Unspecified asthma, uncomplicated; Z90.710 Acquired absence of both cervix and uterus; Z88.8 Allergy status to other drugs, medicaments and biological substances; Z91.041 Radiographic dye allergy status; I25.2 Old myocardial infarction; Z68.33 Body mass index [BMI] 33.0-33.9, adult; Z91.148 Patient's other noncompliance with medication regimen for other reason; Z82.49 Family history of ischemic heart disease and other diseases of the circulatory system; Z71.6 Tobacco abuse counseling
CPT/HCPCS: 36415; 71045; 78452; 80048; 80053; 80061; 83036; 83735; 84132; 84439; 84443; 84484; 85025; 90656; 93005; 93017; 93306; 96372; 96374; 99291; 99292; G0378; J2405